=== PATIENT | female | born 1965 | race Caucasian/White ===

== ENCOUNTER 2018-05-11 12:31 | Emergency (ER) | payer BC, OTHER ==
[~2018-05-11] VITALS: Ht 172.7 cm; Wt 77.1 kg
[2018-05-11] MEDS ORDERED: FLEXERIL PO (13:02)
[2018-05-11] MEDS ORDERED: MEDROLDOSEPACK PO (13:03)
[2018-05-11] MEDS ORDERED: VALIUM5 MG PO (13:40)
[2018-05-11 13:58] VITALS: BP 151/77
== END 2018-05-11 14:00 | disposition home or self-care (01) ==
LOC: ER 12:31
DX: M54.41 Lumbago with sciatica, right side (principal); Z91.018 Allergy to other foods